=== PATIENT | female | born 1985 ===

== ENCOUNTER 2023-01-22 05:28 | Day surgery (SDC) | payer OTHER ==
[2023-01-22] MEDS ORDERED: MORGIDOX100 MG PO (08:35)
[2023-01-22] MEDS ORDERED: NAPR500T14 PO (08:35)
== END 2023-01-22 15:50 | disposition home or self-care (01) ==
LOC: CIR.AMB 05:28
PROVIDERS: ATTEND Obstetrics & Gynecology
DX: D25.0 Submucous leiomyoma of uterus (principal); N84.0 Polyp of corpus uteri; N92.0 Excessive and frequent menstruation with regular cycle; I10 Essential (primary) hypertension